=== PATIENT | male | born 1975 | race Caucasian/White ===

== ENCOUNTER 2018-01-28 11:52 | Observation (INO) | payer BC ==
--- NOTE | 2018-01-28 12:08 | ERPHSYRPT ---
- History of Present Illness Time Seen by Provider: 01/28/18 12:00 Historian: patient Exam Limitations: no limitations Physician History: 42 y/o male comes to the ER with complaints of left sided chest pain that started 2 hours ago. Pt described the pain as sharp, lasting for several seconds , as high as 6/10 and his gave him 4 baby ASA. Pt denies any shortness of breath, dizziness or palpitations. Pt has a strong family history of coronary disease with his father having 4 MIs in his 40's and an uncle with PA in his 40' s. Pt does smoke occasionally. Of note, patient admits to not feeling well for the last few days and having nausea. Timing/Duration: today Activities at Onset: none Quality: sharpness Location: substernal, central Chest Pain Radiation: no radiation Severity of Pain-Max: moderate Severity of Pain-Current: none Modifying Factors: Improves With: nothing Associated Symptoms: nausea Prior Chest Pain/Cardiac Workup: no prior chest pain Nitro Today/Relief: no nitro taken today Aspirin Treatment Today: 81 mg x 1 Allergies/Adverse Reactions: Penicillins Allergy (Intermediate, Verified 01/28/18 12:06) reaction when a child Home Medications: No Reportable Medications [No Reported Medications] 01/28/18 [History] - Review of Systems Constitutional: Weakness, No Fever, No Chills Eyes: No Symptoms Ears, Nose, & Throat: No Symptoms Respiratory: No Cough, No Dyspnea Cardiac: Chest Pain, No Edema, No Palpitations, No Syncope, No Orthopnea Abdominal/Gastrointestinal: Nausea, No Abdominal Pain, No Vomiting, No Diarrhea Genitourinary Symptoms: No Dysuria Musculoskeletal: No Back Pain, No Neck Pain Skin: No Rash Neurological: No Dizziness, No Focal Weakness, No Sensory Changes Psychological: No Symptoms Endocrine: No Symptoms All Other Systems: Reviewed and Negative - Nursing Vital Signs Nursing Vital Signs: Initial Vital Signs Temperature 98.8 F 01/28/18 11:54 Pulse Rate 70 01/28/18 11:54 Respiratory Rate 16 01/28/18 11:54 Blood Pressure 161/98 01/28/18 11:54 O2 Sat by Pulse Oximetry 98 01/28/18 11:54 Pain Scale Pain Intensity 0 - Physical Exam General Appearance: no apparent distress, alert Eye Exam: PERRL/EOMI, eyes nml inspection Ears, Nose, Throat Exam: normal ENT inspection, moist mucous membranes Neck Exam: normal inspection, non-tender, supple, full range of motion Respiratory Exam: normal breath sounds, lungs clear, No chest tenderness, No respiratory distress Cardiovascular Exam: regular rate/rhythm, normal heart sounds, normal peripheral pulses Gastrointestinal/Abdomen Exam: soft, normal bowel sounds, No tenderness, No mass Back Exam: normal inspection, No CVA tenderness, No vertebral tenderness Extremity Exam: normal inspection, normal range of motion Neurologic Exam: alert, oriented x 3, cooperative, normal mood/affect, sensation nml, No motor deficits Skin Exam: normal color, warm, dry - Course Nursing assessment & vital signs reviewed: Yes EKG Interpreted by Me: RATE, NORMAL AXIS, NORMAL INTERVALS, NORMAL QRS, NORMAL ST-T Ordered Tests: Active Orders 24 hr Category Date Time Status Bedrest with BRP/BSC ROUTINE Activity 01/28/18 13:[address] STAT Care 01/28/18 12:09 Active Code Status Order ROUTINE Care 01/28/18 13:15 Active EKG-ER Only STAT Care 01/28/18 12:08 Active IV Care Q6H Care 01/28/18 13:15 Active IV Insertion STAT Care 01/28/18 12:08 Active Implement Chest Pain Pathway ROUTINE Care 01/28/18 13:[address] in Observation ROUTINE Care 01/28/18 13:15 Active Mauricio Jones, Apply ROUTINE Care 01/28/18 13:15 Active Telemetry ROUTINE Care 01/28/18 13:15 Active Weight,Daily 0600 Care 01/28/18 13:15 Active Cardiac Diet Diet 01/28/18 Dinner Active CHEST 2 VIEWS (PA AND LAT) Stat Exams 01/28/18 12:09 Taken CBC W DIFF Stat Lab 01/28/18 12:13 Completed CK-Creatinine Phosphokinase Stat Lab 01/28/18 12:13 Completed CMP Stat Lab 01/28/18 12:13 Completed D-DIMER QUANTITATION Stat Lab 01/28/18 12:13 Completed LIPID PROFILE AM.LAB Lab 01/29/18 04:00 Ordered PROTIME WITH INR Stat Lab 01/28/18 12:13 Completed PTT Stat Lab 01/28/18 12:13 Completed TROPONIN Q3H Lab 01/28/18 12:13 Completed TROPONIN Q3H Lab 01/28/18 15:15 Ordered TROPONIN Q3H Lab 01/28/18 18:15 Ordered TROPONIN Q3H Lab 01/28/18 21:15 Ordered TROPONIN Q3H Lab 01/29/18 00:15 Ordered EKG Q8HX2,QAMX3,PRN RT 01/28/18 13:15 Active Pulse Oximetry Q4H RT 01/28/18 13:15 Active Transfer Order Routine Transfer 01/28/18 Ordered Medication Summary Generic Name Dose Route Start Last Admin Trade Name Freq PRN Reason Stop Dose Admin Acetaminophen 650 mg 01/28/18 13:15 Tylenol 325 Mg PO 02/27/18 13:14 Q4H PRN PRN PAIN AND/OR FEVER Al Hydrox/Mg Hydrox/Simethicone 30 ml 01/28/18 13:15 Maalox Es 30 Ml Unit Dose PO 02/27/18 13:14 Q4H PRN PRN INDIGESTION Aspirin 325 mg 01/29/18 10:00 Ecotrin 325 Mg PO 02/28/18 09:59 DAILY [place] Magnesium Hydroxide 30 - 60 ml 01/28/18 13:15 Milk Of Magnesia 30 Ml PO 02/27/18 13:14 QDP PRN CONSTIPATION Ondansetron HCl 4 mg 01/28/18 13:15 Zofran 4 Mg/2 Ml Vial IV 02/27/18 13:14 Q4H PRN PRN NAUSEA/VOMITING Senna/Docusate Sodium 2 udtab 01/28/18 13:15 Senokot-S Tablet PO 02/27/18 13:14 BID PRN PRN CONSTIPATION Lab/Rad Data: Laboratory Result Diagrams 01/28/18 12:13 01/28/18 12:13 Laboratory Results 01/28/18 01/28/18 01/28/18 Range/Units 12:13 12:13 12:13 WBC (4.0-10.5) K/mm3 RBC (4.1-5.6) M/mm3 Hgb (12.5-18.0) gm/dl Hct (42-50) % MCV (78-100) fl MCH (26-32) pg MCHC (32-36) g/dl RDW (11.5-14.0) % Plt Count (150-450) K/mm3 MPV (6-9.5) fl Gran % (36.0-66.0) % Eos # (Auto) (0-0.5) Absolute Lymphs (auto) (1.0-4.6) Absolute Monos (auto) (0.0-1.3) Lymphocytes % (24.0-44.0) % Monocytes % (0.0-12.0) % Eosinophils % (0.00-5.0) % Basophils % (0.0-0.4) % Absolute Granulocytes (1.4-6.9) Basophils # (0-0.4) PT 12.2 (8.83-12.87) SECONDS INR 1.05 (0.8-3.0) APTT 37.5 H (24.1-36.1) SECONDS D-Dimer < 215 L (215-500) ng/mL Sodium 145 (137-145) mmol/L Potassium 3.9 (3.5-5.1) mmol/L Chloride 106 (98-107) mmol/L Carbon Dioxide 26 (22-30) mmol/L Anion Gap 16.7 H (5-15) MEQ/L BUN 12 (9-20) mg/dL Creatinine 0.75 (0.66-1.25) mg/dL Estimated GFR > 60.0 ML/MIN Glucose 113 H (74-106) mg/dL Calcium 9.9 (8.4-10.2) mg/dL Total Bilirubin 1.40 H (0.2-1.3) mg/dL AST 19 (17-59) U/L ALT 21 (0-50) U/L Alkaline Phosphatase 65 (38-126) U/L Creatine Kinase 60 (55-170) U/L Troponin I < 0.012 (0.000-0.034) ng/mL Serum Total Protein 8.1 (6.3-8.2) g/dL Albumin 4.5 (3.5-5.0) g/dL 01/28/18 Range/Units 12:13 WBC 6.7 (4.0-10.5) K/mm3 RBC 5.53 (4.1-5.6) M/mm3 Hgb 16.3 (12.5-18.0) gm/dl Hct 45.4 (42-50) % MCV 82.1 (78-100) fl MCH 29.5 (26-32) pg MCHC 35.9 (32-36) g/dl RDW 13.3 (11.5-14.0) % Plt Count 224 (150-450) K/mm3 MPV 9.6 H (6-9.5) fl Gran % 71.3 H (36.0-66.0) % Eos # (Auto) 0.03 (0-0.5) Absolute Lymphs (auto) 1.31 (1.0-4.6) Absolute Monos (auto) 0.57 (0.0-1.3) Lymphocytes % 19.5 L (24.0-44.0) % Monocytes % 8.5 (0.0-12.0) % Eosinophils % 0.4 (0.00-5.0) % Basophils % 0.3 (0.0-0.4) % Absolute Granulocytes 4.80 (1.4-6.9) Basophils # 0.02 (0-0.4) PT (8.83-12.87) SECONDS INR (0.8-3.0) APTT (24.1-36.1) SECONDS D-Dimer (215-500) ng/mL Sodium (137-145) mmol/L Potassium (3.5-5.1) mmol/L Chloride (98-107) mmol/L Carbon Dioxide (22-30) mmol/L Anion Gap (5-15) MEQ/L BUN (9-20) mg/dL Creatinine (0.66-1.25) mg/dL Estimated GFR ML/MIN Glucose (74-106) mg/dL Calcium (8.4-10.2) mg/dL Total Bilirubin (0.2-1.3) mg/dL AST (17-59) U/L ALT (0-50) U/L Alkaline Phosphatase (38-126) U/L Creatine Kinase (55-170) U/L Troponin I (0.000-0.034) ng/mL Serum Total Protein (6.3-8.2) g/dL Albumin (3.5-5.0) g/dL - Progress Progress: improved Progress Note: 01/28/18 13:10 The patient has an elevated PTT of 37.5 and is not on any heparin products. A repeat PTT needs to be done and possibly a mixing study. The first troponin is within normal limits and the EKG does not show any acute findings. CXR does not show any acute findings. Pt already has received ASA 325mg. Since patient has a strong family history of coronary disease, patient has been admitted to Dr Cagle. 01/28/18 13:12 - Departure Time of Disposition: 13:14 Departure Disposition: Observation Clinical Impression: Chest pain Qualifiers: Chest pain type: unspecified Qualified Code(s): R07.9 - Chest pain, unspecified Condition: Stable Critical Care Time: No Referrals: ROSARIO DÍAZ [Primary Care Provider] -
[2018-01-28 12:15] LABS: BASOPHIL % 0.3 % (0.0-0.4); Basophil (Absolute #) 0.02 (0-0.4); Eosinophil % 0.4 % (0.00-5.0); Eosinophil (Absolute #) 0.03 (0-0.5); Granulocytes % 71.3 % (36.0-66.0); Hematocrit 45.4 % (42-50); Hemoglobin 16.3 gm/dl (12.5-18.0); Lymphocyte (Absolute #) 1.31 (1.0-4.6); Lymphocytes % 19.5 % (24.0-44.0); Mean Cell Volume 82.1 fl (78-100); Mean Corpuscular Hemoglobin 29.5 pg (26-32); Mean Corpuscular Hgb Concent. 35.9 g/dl (32-36); Mean Platelet Volume 9.6 fl (6-9.5); Monocyte (Absolute #) 0.57 (0.0-1.3); Monocytes % 8.5 % (0.0-12.0); Platelet Count 224 K/mm3 (150-450); Red Blood Count 5.53 M/mm3 (4.1-5.6); Red Cell Distribution Width 13.3 % (11.5-14.0); White Blood Count 6.7 K/mm3 (4.0-10.5)
[2018-01-28 12:31] LABS: INR 1.05 (0.8-3.0)
[2018-01-28 12:34] LABS: PTT 37.5 SECONDS (24.1-36.1)
[2018-01-28 12:39] LABS: ALBUMIN 4.5 g/dL (3.5-5.0); ALKALINE PHOSPHATASE 65 U/L (38-126); ANION GAP 16.7 MEQ/L (5-15); BLOOD UREA NITROGEN 12 mg/dL (9-20); CHLORIDE 106 mmol/L (98-107); CK-Creatinine Phosphokinase 60 U/L (55-170); Calcium 9.9 mg/dL (8.4-10.2); Carbon Dioxide 26 mmol/L (22-30); Creatinine 1 0.75 mg/dL (0.66-1.25); Glucose 113 mg/dL (74-106); Potassium 3.9 mmol/L (3.5-5.1); SGOT/AST 19 U/L (17-59); SGPT/ALT 21 U/L (0-50); SODIUM 145 mmol/L (137-145); Total Protein 8.1 g/dL (6.3-8.2)
[2018-01-28 12:42] LABS: D-DIMER QUANTITATION < 215 ng/mL (215-500)
[2018-01-28] MEDS ORDERED: MILK OF MAGNESIA 30 ML PO PRN (13:15)
[2018-01-28] MEDS ORDERED: MAALOX ES 30 ML UNIT DOSE PO PRN (13:15)
[2018-01-28] MEDS ORDERED: Zofran 4 MG/2 ML VIAL IV PRN (13:15)
[2018-01-28] MEDS ORDERED: TYLENOL 325 MG PO PRN (13:15)
[2018-01-28] MEDS ORDERED: Senokot-S Tablet PO PRN (13:15)
--- NOTE | 2018-01-28 20:50 | XRAY ---
Indication: Chest pain. Comparison: None Portablel chest demonstrates normal heart and lungs with incidental right base calcified granuloma. Bony thorax intact.
[2018-01-29 04:49] LABS: Risk Ratio 8.3
--- NOTE | 2018-01-29 08:45 | PCM.HP ---
History of Present Illness - Chief Complaint Chief Complaint: chest pain History of Present Illness: is a 42 year old male who presented with complaints of a 4 day history of upset stomach, low abd pain and diarrhea. Yesterday afternoon he developed acute onset of sharp chest pain 2 hours prior to arrival to ER. His gave him 4 81mg aspirin and the pain resolved in several minutes. there was no shortness of breath, nausea, vomiting nor palpitations associated with the chest pain. He is a smoker with a strong family history of CAD in multiple family members but has no personal history of cardiac disease, has never had any CV testing nor seen a learning center coordinator in the past. - Review of Systems Constitutional: No Fever, No Chills Respiratory: No Cough, No Short Of Breath Cardiac: Chest Pain (resolved since admission), No Edema, No Syncope Abdominal/Gastrointestinal: Abdominal Pain, Nausea, Diarrhea, No Vomiting, No Constipation Genitourinary Symptoms: No Symptoms All Other Systems: Reviewed and Negative Medications & Allergies Home Medications: Home Medication List No Reportable Medications [No Reported Medications] 01/28/18 [History Confirmed 01/28/18] Allergies/Adverse Reactions: Allergies Allergy/AdvReac Type Severity Reaction Status Date / Time Penicillins Allergy Intermediate reaction Verified 01/28/18 12:06 when a child - Past Medical History Past Medical History: No Neurological History: No Pertinent History ENT History: No Pertinent History Cardiac History: No Pertinent History Respiratory History: No Pertinent History Endocrine Medical History: No Pertinent History Musculoskelatal History: No Pertinent History GI Medical History: No Pertinent History History: No Pertinent History Pyscho-Social History: No Pertinent History Male Reproductive Disorders: No Pertinent History - Past Surgical History Past Surgical History: Yes Neuro Surgical History: No Pertinent History Other Surgical History: left shoulder. right leg - Social History Smoking Status: Light tobacco smoker How long have you smoked: years Exposure to second hand smoke: No Alcohol: Occasionally Drug Use: none - Physical Exam Vital Signs: Vital Signs - 24 hr Temp Pulse Pulse Resp BP Pulse Ox 01/29/18 08:00 97 01/29/18 07:21 97.5 F 55 L 18 132/63 97 01/29/18 04:00 97.9 F 66 16 114/60 98 01/29/18 00:03 98.3 F 58 L 16 120/67 99 01/29/18 00:00 99 01/28/18 20:00 98.6 F 64 18 152/84 96 01/28/18 16:19 97.9 F 63 20 144/79 96 01/28/18 16:00 96 01/28/18 13:50 98 F 01/28/18 13:34 98 F 60 20 153/84 96 01/28/18 13:31 98 F 60 20 153/84 96 01/28/18 13:17 97.8 F 55 L 16 134/85 98 01/28/18 11:54 98.8 F 66 70 16 161/98 98 General Appearance: no apparent distress, alert Neurologic Exam: alert, oriented x 3, cooperative, normal mood/affect, nml cerebellar function, nml station & gait, sensation nml, No motor deficits Eye Exam: PERRL/EOMI, eyes nml inspection Respiratory Exam: normal breath sounds, lungs clear, No respiratory distress Cardiovascular Exam: regular rate/rhythm, normal heart sounds, normal peripheral pulses Gastrointestinal/Abdomen Exam: soft, normal bowel sounds, No tenderness, No guarding, No rebound Back Exam: normal inspection, normal range of motion, No CVA tenderness, No vertebral tenderness Extremity Exam: normal inspection, normal range of motion, pelvis stable Skin Exam: normal color, warm, dry, No rash Results - Labs Lab/Micro Results: Lab Results-Last 24 Hours 01/28/18 01/28/18 01/28/18 Range/Units 15:29 18:15 21:30 Troponin I < 0.012 < 0.012 < 0.012 (0.000-0.034) ng/mL Triglycerides (30-150) mg/dL Cholesterol (50-200) mg/dL LDL Cholesterol (30-100) mg/dL HDL Cholesterol (40-60) mg/dL Heart Disease Risk Ratio 01/29/18 01/29/18 Range/Units 00:45 00:45 Troponin I < 0.012 (0.000-0.034) ng/mL Triglycerides 211 H (30-150) mg/dL Cholesterol 273 H (50-200) mg/dL LDL Cholesterol 174 H (30-100) mg/dL HDL Cholesterol 33 L (40-60) mg/dL Heart Disease Risk Ratio 8.3 - Radiology Impressions Radiology Exams & Impressions: Radiology Procedures Category Date Time Status ABDOMEN AND PELVIS W CONTRAST [CT] Urgent Exams 01/29/18 08:38 Ordered - Other Procedures and Tests Respiratory Therapy 01/30/18 05:00 EKG DAILY 01/31/18 05:00 EKG DAILY Assessment/Plan (1) Chest pain Current Visit: Yes Status: Acute Qualifiers: Chest pain type: unspecified Qualified Code(s): R07.9 - Chest pain, unspecified Assessment & Plan: MN has been ruled out, discussed outpatient stress test/cardiology referral on discharge. patient plans to quit smoking after risk factor discussion. LDL 174 so would be a candidate for statin therapy as well for risk reduction Code(s): R07.9 - CHEST PAIN, UNSPECIFIED (2) Abdominal pain Current Visit: Yes Status: Acute Assessment & Plan: will get ct abd/pel, exam benign but symptoms persist and worsen after eating for the last 4 days Code(s): R10.9 - UNSPECIFIED ABDOMINAL PAIN (3) Diarrhea Current Visit: Yes Status: Acute Assessment & Plan: check stool for c diff, ova and parasites and stool culture Code(s): R19.7 - DIARRHEA, UNSPECIFIED
[2018-01-29] MEDS ORDERED: Ecotrin 325 MG PO SCH (10:00)
[2018-01-29 10:36] LABS: 027 TOX PROD PRESUMPTIVE NEGATIVE (NEGATIVE); TOXIGENIC C. DIFF ORG NEGATIVE (NEGATIVE)
[2018-01-29 12:25] VITALS: BP 129/71; PULSE 56; O2SAT 98
--- NOTE | 2018-01-29 17:10 | XRAY ---
Indication: Lower abdominal pain and diarrhea 4 days. Multiple contiguous axial images obtained through the abdomen and pelvis using 80 cc Isovue 370 contrast only. Comparison: None Lung bases demonstrates right base calcified granuloma. No infiltrate or effusion. Heart is not enlarged. Noncontrasted stomach and bowel loops appear nonobstructed. Normal appendix. No free fluid/air. 1 cm left lobe hepatic hemangioma. 1 m right upper pole exophytic renal cyst. Remaining liver, gallbladder, pancreas, spleen, adrenal glands, kidneys, ureters, and bladder appear unremarkable. Minimal aortoiliac calcifications. No AAA or pathological retroperitoneal lymphadenopathy. Osseous structures intact. No ventral or inguinal hernias. Impression: 1. Hepatic hemangioma and right renal cyst. 2. Remaining CT abdomen/pelvis with contrast exam is negative. Comment: Preliminary interpretation was made by C. No discrepancy. CTDI 23.69
[2018-02-01 12:27] LABS: Source: Feces
== END 2018-01-29 14:15 | disposition home or self-care (01) ==
LOC: ED 11:52 → MED SURG 13:25
PROVIDERS: ADMIT Family Medicine; ATTEND Internal Medicine
DX: R07.9 Chest pain, unspecified (principal); R10.9 Unspecified abdominal pain; R19.7 Diarrhea, unspecified
CPT/HCPCS: 36000; 36415; 71046; 74177; 80053; 80061; 82550; 83721; 84484; 85025; 85379; 85610; 85730; 87045; 87046; 87177; 87209; 87335; 87493; 93005; 93041; 93268; 99285; J2405; A9270-GY; G0378

== ENCOUNTER 2018-03-29 05:55 | Day surgery (SDC) | payer BC ==
[2018-03-29] MEDS ORDERED: DIPRIVAN 200 MG/20 ML IV ONE (05:56)
[2018-03-29 06:17] VITALS: O2SAT 97
[2018-03-29] MEDS ORDERED: Lactated Ringers 1,000 ML IV SCH (06:30)
[2018-03-29 08:14] VITALS: BP 118/64; PULSE 60
--- NOTE | 2018-03-29 08:51 | OP ---
SURGERY DATE/TIME: 03/29/2018 0700 PREOPERATIVE DIAGNOSIS: Epigastric abdominal pain. POSTOPERATIVE DIAGNOSIS: Moderate gastritis with superficial ulceration. PROCEDURE: EGD. SURGEON: Fernando Cagle M.D. ANESTHESIA: MAC by Brayan Honeycutt CRNA. ESTIMATED BLOOD LOSS: Minimal. SPECIMENS: There are two cold forceps biopsies taken from the gastric antrum. DESCRIPTION OF PROCEDURE: After informed written consent was obtained, the patient was taken to the endoscopy suite. He underwent monitored anesthesia and a bite block was inserted. The endoscope was inserted into the posterior oropharynx and under direct visualization the esophagus was traversed. No obvious mucosal abnormalities are present in the esophagus. The gastroesophageal junction likewise appeared normal. Upon entering the gastric cavity there was normal rugated gastric mucosa. In the area of the pylorus there moderate to severe gastritis-type changes with some superficial ulceration in the antrum near the pylorus. The pylorus was traversed and the first and second portions of the duodenum showed no obvious lesions. Two cold forceps biopsies were taken from the gastric antrum and sent for Helicobacter pylori testing. The remainder of the exam was unremarkable upon withdrawal of the scope. The scope was removed and the patient was transferred to the recovery room in excellent condition. I have advised avoidance of all NSAID's and started him on Protonix 40 mg daily. Follow up in one week for pathology results.
== END 2018-03-29 08:06 | disposition home or self-care (01) ==
LOC: SDC 05:55
PROVIDERS: ATTEND Family Medicine
DX: K29.70 Gastritis, unspecified, without bleeding (principal); K25.9 Gastric ulcer, unspecified as acute or chronic, without hemorrhage or perforation
CPT/HCPCS: 88305; 94250; J2704

== ENCOUNTER 2021-03-25 04:24 | Observation (INO) | payer BC ==
[2021-03-25] MEDS ORDERED: TORAdol 30 mg Injection IV ONE (04:56)
[2021-03-25] MEDS ORDERED: DECADRON 10MG INJ. IV ONE (04:56)
[2021-03-25] MEDS ORDERED: TORAdol 30 mg Injection ONE (04:57)
[2021-03-25] MEDS ORDERED: DECADRON 10MG INJ. ONE (04:57)
--- NOTE | 2021-03-25 05:07 | ERPHSYRPT ---
- History of Present Illness Time Seen by Provider: 03/25/21 04:40 Source: patient Exam Limitations: no limitations Patient Subjective Stated Complaint: Pt states, "I've had back pain x6 days and I can't do this anymore". Triage Nursing Assessment: pt c/o rt lower back pain which radiates down his rt leg. 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 Pt rates pain a 10 out of 10. Pt went to [facility] on Tuesday and went to the chiropractor on Tuesday and Tuesday and is not getting any relief. Physician History: Patient is a 45-year-old male presents to our ED with complaints of of low back pain. Back pain started approximately 6 days ago while he was at work. Patient works pouring concrete. Patient went to [facility] on Tuesday. Patient states they thought he may have had a kidney stone. Patient had a CT abdomen pelvis. CAT scan did not reveal any obvious back pathology. Patient was giving [place] pain medication. Patient followed up with his chiropractor on Tuesday. Patient states the pain did not improve at this timeframe. Patient's chiropractor advised him to follow-up in the ER. Patient is here this morning because he could not sleep. Pain described as an ache at his low back that radiates down his right leg. Pain worse with long sitting. Pain improves when he hangs his leg over the edge of the bed. No associated fever. No change in bowel bladder function. No saddle anesthesia. No recent back procedures. No associated chest pain or shortness of breath. Patient rates his pain 10 out of 10. Patient voices no other complaints or concerns at this time. Timing/Duration: day(s) (6 days ago) Method of Injury: other (Patient went to work last Tuesday and felt well. Patient works pouring concrete. He felt well that day. The following day on is when he experienced the pain at his back.) Quality: aching Back Pain Location: lumbar spine, paraspinous muscles (Pain spans across the low back.) Back Pain Radiation: lower legs (Radiates down his right lower extremity.) Severity of Pain-Max: moderate Severity of Pain-Current: mild Modifying Factors: Improves With: movement (Weightbearing also worsens symptoms.) Associated Symptoms: denies symptoms, No fever, No chills, No urinary incontinence, No loss of bowel control, No nausea, No vomiting, No light- headedness, No numbness in legs/feet, No tingling in legs/feet Previous symptoms: no prior history Allergies/Adverse Reactions: Penicillins Allergy (Intermediate, Verified 03/25/21 04:49) reaction when a child Home Medications: Cyclobenzaprine HCl 10 mg [Cyclobenzaprine 10 MG] 10 mg PO TID PRN PRN 03/25/21 [History] Hx Tetanus, Diphtheria Vaccination/Date Given: Yes Hx Influenza Vaccination/Date Given: No Hx Pneumococcal Vaccination/Date Given: No Immunizations Up to Date: Yes Travel Risk - International Travel Have you traveled outside of the country in past 3 weeks: No - Coronavirus Screening Are you exhibiting any of the following symptoms?: No Close contact with a COVID-19 positive Pt in past 14-21 Days: No - Vaccine Status Have you recieved a Covid-19 vaccination: No - Review of Systems Constitutional: No Symptoms, No Fever, No Chills Eyes: No Symptoms Ears, Nose, & Throat: No Symptoms Respiratory: No Symptoms, No Cough, No Dyspnea Cardiac: No Symptoms, No Chest Pain, No Edema, No Syncope Abdominal/Gastrointestinal: No Symptoms, No Abdominal Pain, No Nausea, No Vomiting, No Diarrhea Genitourinary Symptoms: No Symptoms, No Dysuria Musculoskeletal: No Symptoms, No Back Pain, No Neck Pain Skin: No Symptoms, No Rash Neurological: No Symptoms, No Dizziness, No Focal Weakness, No Sensory Changes Psychological: No Symptoms Endocrine: No Symptoms Hematologic/Lymphatic: No Symptoms Immunological/Allergic: No Symptoms All Other Systems: Reviewed and Negative - Past Medical History Pertinent Past Medical History: Yes Neurological History: No Pertinent History ENT History: No Pertinent History Cardiac History: No Pertinent History Respiratory History: No Pertinent History Endocrine Medical History: No Pertinent History Musculoskeletal History: No Pertinent History GI Medical History: No Pertinent History History: No Pertinent History Psycho-Social History: No Pertinent History Male Reproductive Disorders: No Pertinent History - Past Surgical History Past Surgical History: Yes Neuro Surgical History: No Pertinent History Cardiac: No Pertinent History Respiratory: No Pertinent History Gastrointestinal: No Pertinent History Genitourinary: No Pertinent History Musculoskeletal: Orthopedic Surgery, Other Male Surgical History: No Pertinent History Other Surgical History: surgery rt leg. lt rotator cuff - Social History Smoking Status: Never smoker How long have you smoked: years Exposure to second hand smoke: No Drug Use: none Patient Lives Alone: No - Nursing Vital Signs Nursing Vital Signs: Initial Vital Signs Temperature 98.9 F 03/25/21 04:32 Pulse Rate 74 03/25/21 04:32 Respiratory Rate 22 03/25/21 04:32 Blood Pressure 130/71 03/25/21 04:32 O2 Sat by Pulse Oximetry 97 03/25/21 04:32 Pain Scale Pain Intensity [Right Lower 10 Posterior Back] Pain Intensity 3 - Physical Exam General Appearance: no apparent distress, alert Eye Exam: PERRL/EOMI, eyes nml inspection Neck Exam: normal inspection, non-tender, supple, full range of motion, No meningismus, No midline tenderness Respiratory Exam: normal breath sounds, lungs clear, No respiratory distress Cardiovascular Exam: regular rate/rhythm, normal heart sounds Gastrointestinal Exam: soft, No tenderness, No mass, No guarding, No pulsatile mass Back Exam: other (Tenderness to palpation across low back. No point tenderness. Overlying soft tissue intact. No signs of trauma.) Extremity Exam: normal inspection, normal range of motion, other (Positive SLR right lower extremity. PT DP pulses are palpable and bilaterally equal. Cap refill less than 2 seconds. 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, normal mood/affect, sensation nml, other (Ambulation worsens pain.), No motor deficits Skin Exam: normal color, warm, dry, No rash Lymphatic Exam: No adenopathy SpO2 Interpretation: normal SpO2: 97 O2 Delivery: Room Air - Course Nursing assessment & vital signs reviewed: Yes Ordered Tests: Active Orders 24 hr Category Date Time Status LUMBAR SPINE W/O [CT] Stat Exams 03/25/21 05:25 Taken CBC W DIFF Stat Lab 03/25/21 05:18 Completed CMP Stat Lab 03/25/21 05:18 Completed CULTURE,URINE Stat Lab 03/25/21 05:57 Received Manual Differential NC Stat Lab 03/25/21 05:18 Completed UA W/RFX UR CULTURE Stat Lab 03/25/21 05:57 Completed Medication Summary Generic Name Dose Route Start Last Admin Trade Name Moraima PRN Reason Stop Dose Admin Ceftriaxone Sodium/Dextrose 1 g in 50 mls @ 100 mls/hr 03/25/21 07:00 Rocephin 1 Gm-D5w 50 Ml Bag IV 03/25/21 07:29 STAT STA Discontinued Medications Generic Name Dose Route Start Last Admin Trade Name Moraima PRN Reason Stop Dose Admin Dexamethasone Sodium Phosphate 10 mg 03/25/21 04:56 03/25/21 05:00 Decadron 10mg Inj. IV 03/25/21 04:57 10 mg STAT ONE Administration Dexamethasone Sodium Phosphate Confirm 03/25/21 04:57 Decadron 10mg Inj. Administered 03/25/21 04:58 Dose 10 mg .ROUTE .STK-MED ONE Ketorolac Tromethamine 30 mg 03/25/21 04:56 03/25/21 05:00 Toradol 30 Mg Injection IV 03/25/21 04:57 30 mg STAT ONE Administration Ketorolac Tromethamine Confirm 03/25/21 04:57 Toradol 30 Mg Injection Administered 03/25/21 04:58 Dose 30 mg .ROUTE .STK-MED ONE Lab/Rad Data: Laboratory Result Diagrams 03/25/21 05:18 03/25/21 05:18 Laboratory Results 03/25/21 03/25/21 03/25/21 Range/Units 05:57 05:18 05:18 WBC 8.0 (4.0-10.5) K/mm3 RBC 4.54 (4.1-5.6) M/mm3 Hgb 13.0 (12.5-18.0) gm/dl Hct 38.4 L (42-50) % MCV 84.6 (78-100) fl MCH 28.6 (26-32) pg MCHC 33.9 (32-36) g/dl RDW 12.6 (11.5-14.0) % Plt Count 165 (150-450) K/mm3 MPV 9.4 (7.5-11.0) fl Sodium 136 L (137-145) mmol/L Potassium 3.5 (3.5-5.1) mmol/L Chloride 97 L (98-107) mmol/L Carbon Dioxide 30 (22-30) mmol/L Anion Gap 12.2 (5-15) MEQ/L BUN 20 (9-20) mg/dL Creatinine 0.89 (0.66-1.25) mg/dL Estimated GFR > 60.0 ML/MIN Glucose 117 H (74-106) mg/dL Calcium 9.2 (8.4-10.2) mg/dL Total Bilirubin 1.10 (0.2-1.3) mg/dL AST 62 H (17-59) U/L ALT 127 H (0-50) U/L Alkaline Phosphatase 105 (38-126) U/L Serum Total Protein 7.2 (6.3-8.2) g/dL Albumin 3.9 (3.5-5.0) g/dL Urine Color MARILYN (YELLOW) Urine Appearance SLIGHTLY CLOUDY (CLEAR) Urine pH 6.0 (5-6) Ur Specific [place] 1.021 (1.005-1.025) Urine Protein NEGATIVE (Negative) Urine Ketones NEGATIVE (NEGATIVE) Urine Blood MODERATE (0-5) Thang/ul Urine Nitrite POSITIVE (NEGATIVE) Urine Bilirubin NEGATIVE (NEGATIVE) Urine Urobilinogen 4 (0-1) mg/dL Ur Leukocyte Esterase TRACE (NEGATIVE) Urine WBC (Auto) 26-50 (0-5) /HPF Urine RBC (Auto) 0-2 (0-2) /HPF U Hyaline Cast (Auto) 0-2 (0-2) /LPF U Epithel Cells (Auto) RARE (FEW) /HPF Urine Bacteria (Auto) RARE (NEGATIVE) /HPF Urine Mucus (Auto) SLIGHT (NEGATIVE) /HPF Urine Culture Reflexed YES (NO) Urine Glucose NEGATIVE (NEGATIVE) mg/dL - Progress Progress: improved Progress Note: Patient endorsed to Dr. Caruso at approximately 7am. UA reveals a urinary tract infection. Ceftriaxone ordered. Mild elevation of AST and ALT. Patient has no abdominal symptomology. CT lumbar spine pending. Patient reassessed. Pain significantly improved. Patient now resting comfortably. Dr. Caruso will make final disposition. 03/25/21 07:08 - Departure Clinical Impression: Urinary tract infection Condition: Stable Critical Care Time: No Referrals: UZIEL MENESES MD [Primary Care Provider] - Instructions: Sciatica (DC), Low Back Pain (DC)
[2021-03-25 05:21] LABS: Hematocrit 38.4 % (42-50); Mean Cell Volume 84.6 fl (78-100); Mean Corpuscular Hemoglobin 28.6 pg (26-32); Mean Corpuscular Hgb Concent. 33.9 g/dl (32-36); Mean Platelet Volume 9.4 fl (7.5-11.0); Platelet Count 165 K/mm3 (150-450); Red Blood Count 4.54 M/mm3 (4.1-5.6); Red Cell Distribution Width 12.6 % (11.5-14.0)
[2021-03-25 05:38] LABS: ALBUMIN 3.9 g/dL (3.5-5.0); ALKALINE PHOSPHATASE 105 U/L (38-126); ANION GAP 12.2 MEQ/L (5-15); BLOOD UREA NITROGEN 20 mg/dL (9-20); CHLORIDE 97 mmol/L (98-107); Calcium 9.2 mg/dL (8.4-10.2); Carbon Dioxide 30 mmol/L (22-30); Creatinine 1 0.89 mg/dL (0.66-1.25); EST GLOMERULAR FILTRATION RATE > 60.0 ML/MIN; Glucose 117 mg/dL (74-106); Potassium 3.5 mmol/L (3.5-5.1); SGOT/AST 62 U/L (17-59); SGPT/ALT 127 U/L (0-50); SODIUM 136 mmol/L (137-145); Total Protein 7.2 g/dL (6.3-8.2)
[2021-03-25 06:49] LABS: Appearance SLIGHTLY CLOUDY (CLEAR); Bacteria RARE /HPF (NEGATIVE); Bilirubin NEGATIVE (NEGATIVE); Blood MODERATE Ery/ul (0-5); Glucose NEGATIVE (NEGATIVE); Hyaline Casts 0-2 /LPF (0-2); Ketones NEGATIVE (NEGATIVE); Leukocyte Esterase TRACE (NEGATIVE); Mucus SLIGHT /HPF (NEGATIVE); Nitrite POSITIVE (NEGATIVE); Protein,Urine Dip NEGATIVE (Negative); RBC 0-2 /HPF (0-2); Specific Gravity 1.021 (1.005-1.025); Urobilinogen 4 mg/dL (0-1); WBC 26-50 /HPF (0-5)
[2021-03-25 06:50] LABS: Epithelial Cells RARE /HPF (FEW)
[2021-03-25] MEDS ORDERED: ROCEPHIN 1 Gm-D5w 50 ml Bag** 1 G/50 ML IVPB IV STA (07:00)
[2021-03-25] MEDS ORDERED: ROCEPHIN 1 Gm-D5w 50 ml Bag** 1 G/50 ML IVPB IV ONE (07:11)
[2021-03-25] MEDS ORDERED: Sodium Chloride 0.9% 1000 ML 1,000 ML IV STA (08:41)
[2021-03-25] MEDS ORDERED: Sodium Chloride 0.9% 1000 ML 1,000 ML ONE (08:52)
[2021-03-25] MEDS ORDERED: TYLENOL 325 MG PO PRN (10:44)
[2021-03-25] MEDS ORDERED: Hydromorphone 1 mg/ml Injection IV PRN (10:44)
[2021-03-25] MEDS ORDERED: Zofran 4 MG/2 ML VIAL IV PRN (10:44)
[2021-03-25] MEDS: Sodium Chloride 0.9% 1000 ML 1,000 ML IV SCH ×2 (11:40→19:46)
[2021-03-25 13:21] LABS: Lymphocytes 21 % (24-44); Neutrophils 79 % (36.-66.); Platelet Estimate NORMAL (NORMAL); Total Cells Counted 100
[2021-03-25] MEDS: TORAdol 30 mg Injection IV SCH ×2 (14:16→21:57)
--- NOTE | 2021-03-25 17:04 | PCM.HP ---
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 he has had some burning with urination, the pain in his right lower back became so severe that he couldn't take it any more, he is feeling much better since admission and pain is the least it's been in the last 6 days currently. there has been no fever or vomiting, no hematuria. - Review of Systems Constitutional: No Fever, No Chills Respiratory: No Cough, No Short Of Breath Cardiac: No Chest Pain, No Edema, No Syncope Abdominal/Gastrointestinal: No Abdominal Pain, No Nausea, No Vomiting, No Diarrhea Genitourinary Symptoms: Dysuria Musculoskeletal: Back Pain Skin: No Rash All Other Systems: Reviewed and Negative Medications & Allergies Home Medications: Home Medication List No Reportable Medications [No Reported Medications] 03/25/21 [History Confirmed 03/25/21] Allergies/Adverse Reactions: Allergies Allergy/AdvReac Type Severity Reaction Status Date / Time Penicillins Allergy Intermediate reaction Verified 03/25/21 04:49 when a child - Past Medical History Past Medical History: Yes Neurological History: No Pertinent History ENT History: No Pertinent History Cardiac History: No Pertinent History Respiratory History: No Pertinent History Endocrine Medical History: No Pertinent History Musculoskelatal History: No Pertinent History GI Medical History: No Pertinent History History: No Pertinent History Pyscho-Social History: No Pertinent History Male Reproductive Disorders: No Pertinent History - Past Surgical History Past Surgical History: Yes Neuro Surgical History: No Pertinent History Cardiac History: No Pertinent History Respiratory Surgery: No Pertinent History GI Surgical History: No Pertinent History Genitourinary Surgical Hx: No Pertinent History Musculskeletal Surgical Hx: Orthopedic Surgery, Other Male Surgical History: No Pertinent History Other Surgical History: surgery rt leg. lt rotator cuff - Social History Smoking Status: Former smoker How long have you smoked: years Exposure to second hand smoke: No Alcohol: Occasionally Drug Use: none - Physical Exam Vital Signs: Vital Signs - 24 hr Temp Pulse Resp BP Pulse Ox 03/25/21 16:00 96.6 F 72 132/76 96 03/25/21 12:00 97.2 F 73 20 125/67 95 03/25/21 10:55 97.2 F 73 20 125/67 95 03/25/21 10:08 98.4 F 80 20 123/64 96 03/25/21 09:09 74 18 112/66 95 03/25/21 08:10 98 F 83 18 127/66 96 03/25/21 07:12 97 03/25/21 07:11 77 18 118/78 94 L 03/25/21 06:00 82 20 114/80 94 L 03/25/21 04:32 98.9 F 74 22 130/71 97 General Appearance: no apparent distress, alert Respiratory Exam: normal breath sounds, lungs clear, No respiratory distress Cardiovascular Exam: regular rate/rhythm, normal heart sounds, normal peripheral pulses Gastrointestinal/Abdomen Exam: soft, normal bowel sounds, No tenderness, No mass Results - Labs Lab/Micro Results: Lab Results-Last 24 Hours 03/25/21 03/25/21 03/25/21 Range/Units 05:18 05:18 05:57 WBC 8.0 (4.0-10.5) K/mm3 RBC 4.54 (4.1-5.6) M/mm3 Hgb 13.0 (12.5-18.0) gm/dl Hct 38.4 L (42-50) % MCV 84.6 (78-100) fl MCH 28.6 (26-32) pg MCHC 33.9 (32-36) g/dl RDW 12.6 (11.5-14.0) % Plt Count 165 (150-450) K/mm3 MPV 9.4 (7.5-11.0) fl Segmented Neutrophils 79 H (36.-66.) % Lymphocytes (Manual) 21 L (24-44) % Platelet Estimate NORMAL (NORMAL) RBC Morphology NORMAL Sodium 136 L (137-145) mmol/L Potassium 3.5 (3.5-5.1) mmol/L Chloride 97 L (98-107) mmol/L Carbon Dioxide 30 (22-30) mmol/L Anion Gap 12.2 (5-15) MEQ/L BUN 20 (9-20) mg/dL Creatinine 0.89 (0.66-1.25) mg/dL Estimated GFR > 60.0 ML/MIN Glucose 117 H (74-106) mg/dL Calcium 9.2 (8.4-10.2) mg/dL Total Bilirubin 1.10 (0.2-1.3) mg/dL AST 62 H (17-59) U/L ALT 127 H (0-50) U/L Alkaline Phosphatase 105 (38-126) U/L Serum Total Protein 7.2 (6.3-8.2) g/dL Albumin 3.9 (3.5-5.0) g/dL Urine Color MARILYN (YELLOW) Urine Appearance SLIGHTLY CLOUDY (CLEAR) Urine pH 6.0 (5-6) Ur Specific [place] 1.021 (1.005-1.025) Urine Protein NEGATIVE (Negative) Urine Ketones NEGATIVE (NEGATIVE) Urine Blood MODERATE (0-5) Thang/ul Urine Nitrite POSITIVE (NEGATIVE) Urine Bilirubin NEGATIVE (NEGATIVE) Urine Urobilinogen 4 (0-1) mg/dL Ur Leukocyte Esterase TRACE (NEGATIVE) Urine WBC (Auto) 26-50 (0-5) /HPF Urine RBC (Auto) 0-2 (0-2) /HPF U Hyaline Cast (Auto) 0-2 (0-2) /LPF U Epithel Cells (Auto) RARE (FEW) /HPF Urine Bacteria (Auto) RARE (NEGATIVE) /HPF Urine Mucus (Auto) SLIGHT (NEGATIVE) /HPF Urine Culture Reflexed YES (NO) Urine Glucose NEGATIVE (NEGATIVE) mg/dL SARS-CoV-2 (PCR) (NEGATIVE) 03/25/21 Range/Units 09:20 WBC (4.0-10.5) K/mm3 RBC (4.1-5.6) M/mm3 Hgb (12.5-18.0) gm/dl Hct (42-50) % MCV (78-100) fl MCH (26-32) pg MCHC (32-36) g/dl RDW (11.5-14.0) % Plt Count (150-450) K/mm3 MPV (7.5-11.0) fl Segmented Neutrophils (36.-66.) % Lymphocytes (Manual) (24-44) % Platelet Estimate (NORMAL) RBC Morphology Sodium (137-145) mmol/L Potassium (3.5-5.1) mmol/L Chloride (98-107) mmol/L Carbon Dioxide (22-30) mmol/L Anion Gap (5-15) MEQ/L BUN (9-20) mg/dL Creatinine (0.66-1.25) mg/dL Estimated GFR ML/MIN Glucose (74-106) mg/dL Calcium (8.4-10.2) mg/dL Total Bilirubin (0.2-1.3) mg/dL AST (17-59) U/L ALT (0-50) U/L Alkaline Phosphatase (38-126) U/L Serum Total Protein (6.3-8.2) g/dL Albumin (3.5-5.0) g/dL Urine Color (YELLOW) Urine Appearance (CLEAR) Urine pH (5-6) Ur Specific [place] (1.005-1.025) Urine Protein (Negative) Urine Ketones (NEGATIVE) Urine Blood (0-5) Thang/ul Urine Nitrite (NEGATIVE) Urine Bilirubin (NEGATIVE) Urine Urobilinogen (0-1) mg/dL Ur Leukocyte Esterase (NEGATIVE) Urine WBC (Auto) (0-5) /HPF Urine RBC (Auto) (0-2) /HPF U Hyaline Cast (Auto) (0-2) /LPF U Epithel Cells (Auto) (FEW) /HPF Urine Bacteria (Auto) (NEGATIVE) /HPF Urine Mucus (Auto) (NEGATIVE) /HPF Urine Culture Reflexed (NO) Urine Glucose (NEGATIVE) mg/dL SARS-CoV-2 (PCR) NEGATIVE (NEGATIVE) - Radiology Impressions Radiology Exams & Impressions: Radiology Procedures Category Date Time Status LUMBAR SPINE W/O [CT] Stat Exams 03/25/21 05:25 Taken Assessment/Plan (1) Low back pain Current Visit: Yes Status: Acute Assessment & Plan: likely an element of mechanical low back pain based on history with exacerbation by acute infection. pain is currently well controlled and patient is improved. continue current management Code(s): M54.5 - LOW BACK PAIN (2) Acute pyelonephritis Current Visit: Yes Status: Acute Assessment & Plan: continue rocephin, culture pending Code(s): N10 - ACUTE PYELONEPHRITIS
--- NOTE | 2021-03-25 22:12 | XRAY ---
Exam: CT of the lumbar spine without IV contrast from 03/25/2021. CTDI: 29.54 mGy Comparison: None. Indication: 45-year-old male with lower back pain radiating into right hip area/sciatica. Pain has been present for 7 days. The patient pours concrete for a living. His pain is becoming worse. Technique: Multiple axial images were obtained through the lower thoracolumbar spine from the upper T11 level down through the upper sacrum. The images were obtained using a bone filter. Reconstructed coronal and sagittal images were created and reviewed. Findings: I see no acute lumbar spine fracture, AP subluxation, or spondylolysis. The vertebral body heights are well-maintained. Small anterior vertebral endplate spurs are seen. There is no bone destruction. Minimal vascular calcification is seen within the distal abdominal aorta and proximal common iliac arteries. No abdominal aortic aneurysm is seen. Incidentally, there appears to be a 2.8 mm nonobstructing stone within the upper pole of the right kidney. This is well seen on coronal image #40. Also, there appears to be a slightly smaller 1.7 mm in diameter nonobstructing stone within the lower pole of the right kidney on coronal image #37. No hydronephrosis is seen. Incidentally, there is an 8 mm lucency within the medial aspect of the right iliac bone on coronal image #53. This may represent a small bone cyst. The sacroiliac joints appear grossly unremarkable. The visualized right adrenal gland appears unremarkable. There is either a 1.2 cm nodule at the inferior medial aspect of the left adrenal gland, or alternatively, some asymmetric nodular thickening of the left adrenal gland. Assessment with a bone filter is challenging. All of the discs appear of average height, except for perhaps slight narrowing of the L5-S1 disc height. No significant lower lumbar spine facet joint arthropathy is seen. At T11-T12, the disc and thecal sac appear unremarkable. No focal disc protrusion, central canal stenosis, or neural foraminal stenosis is seen. At T12-L1, the disc and thecal sac appear unremarkable without evidence of focal disc protrusion, central canal stenosis, or neural foraminal stenosis. At L1-L2, the disc and thecal sac appear unremarkable without focal disc protrusion, significant central canal stenosis, or neural foraminal narrowing. At L2L3, the disc and thecal sac appear unremarkable revealing no disc protrusion, central canal stenosis, or neural foraminal stenosis. At L3-L4, there is equivocal evidence of minimal diffuse posterior bulging. This does not compromise the thecal sac. A focal disc protrusion, central canal stenosis, or neural foraminal stenosis is not seen. At L4-L5, there is equivocal evidence of slight diffuse annular bulging of the disc without focal disc protrusion, significant central canal spinal stenosis, or neural foraminal stenosis. At L5-S1, there is minimal diffuse posterior bulging of the disc without a focal disc protrusion, significant central canal stenosis, or neural foraminal impingement. Impression: 1. No acute lumbar spine fracture, AP subluxation, spondylolysis, or significant central canal stenosis is seen. Also, no significant neural foraminal stenosis is seen. 2. I believe there is a minimal diffuse posterior bulging of the L5-S1 disc and equivocal evidence of slight posterior diffuse bulging of the L3-L4 and L4-L5 discs. A focal disc protrusion is not seen. 3. Small anterior vertebral endplate spurs are seen. I do not see significant posterior facet joint arthropathy. 4. 2 nonobstructing right renal calculi. No hydronephrosis is seen. 5. 1.2 cm left adrenal gland nodule at inferior aspect versus nodular thickening. Precise assessment is somewhat difficult with the sharp bone filter. 6. 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
[2021-03-26] MEDS: Sodium Chloride 0.9% 1000 ML 1,000 ML IV SCH ×3 (03:32→21:50)
[2021-03-26 04:59] LABS: Hematocrit 36.3 % (42-50); Hemoglobin 12.1 gm/dl (12.5-18.0); Mean Cell Volume 84.2 fl (78-100); Mean Corpuscular Hemoglobin 28.1 pg (26-32); Mean Corpuscular Hgb Concent. 33.3 g/dl (32-36); Mean Platelet Volume 9.7 fl (7.5-11.0); Platelet Count 211 K/mm3 (150-450); Red Blood Count 4.31 M/mm3 (4.1-5.6); Red Cell Distribution Width 12.4 % (11.5-14.0); White Blood Count 10.1 K/mm3 (4.0-10.5)
[2021-03-26 05:16] LABS: ALBUMIN 3.4 g/dL (3.5-5.0); ALKALINE PHOSPHATASE 89 U/L (38-126); ANION GAP 11.4 MEQ/L (5-15); BLOOD UREA NITROGEN 17 mg/dL (9-20); CHLORIDE 102 mmol/L (98-107); Carbon Dioxide 28 mmol/L (22-30); Creatinine 1 0.69 mg/dL (0.66-1.25); EST GLOMERULAR FILTRATION RATE > 60.0 ML/MIN; Glucose 134 mg/dL (74-106); Potassium 3.8 mmol/L (3.5-5.1); SGOT/AST 37 U/L (17-59); SGPT/ALT 93 U/L (0-50); SODIUM 138 mmol/L (137-145); Total Protein 6.6 g/dL (6.3-8.2)
[2021-03-26] MEDS: TORAdol 30 mg Injection IV SCH ×3 (05:19→21:11)
--- NOTE | 2021-03-26 09:26 | PCM.NOTE ---
Date and Time: 03/26/21923 Subjective Assessment: back pain came on suddenly this morning, returned to right lower back, worse with movement. Objective Exam General Appearance: mild distress Neurologic Exam: alert, oriented x 3 Respiratory Exam: normal breath sounds, lungs clear, No respiratory distress Cardiovascular Exam: regular rate/rhythm, normal heart sounds Gastrointestinal/Abdomen Exam: soft, No tenderness, No mass Back Exam: decreased range of motion, muscle spasm, No CVA tenderness, No vertebral tenderness OBJECTIVE DATA Vital Signs: Vital Signs - 24 hr Temp Pulse Resp BP Pulse Ox 03/26/21 07:46 97.0 F 69 18 152/89 95 03/26/21 04:00 97.6 F 70 16 137/79 99 03/25/21 23:35 98.1 F 72 18 140/83 97 03/25/21 19:57 97.8 F 76 18 131/70 98 03/25/21 16:00 96.6 F 72 132/76 96 03/25/21 12:00 97.2 F 73 20 125/67 95 03/25/21 10:55 97.2 F 73 20 125/67 95 03/25/21 10:08 98.4 F 80 20 123/64 96 Pain Assessment - Last Documented Pain Intensity [Right Lower 10 Posterior Back] Pain Intensity 8 Pain Scale Used 0-10 Pain Scale Intake and Output: Intake & Output 03/23/21 03/24/21 03/25/21 03/26/21 11:59 11:59 11:59 11:59 Intake Total 5978 Balance 5978 Weight 108.862 kg 109.1 kg Lab Results: Lab Results-Last 24 Hours 03/25/21 03/25/21 03/26/21 Range/Units 05:18 09:20 04:33 WBC 10.1 (4.0-10.5) K/mm3 RBC 4.31 (4.1-5.6) M/mm3 Hgb 12.1 L (12.5-18.0) gm/dl Hct 36.3 L (42-50) % MCV 84.2 (78-100) fl MCH 28.1 (26-32) pg MCHC 33.3 (32-36) g/dl RDW 12.4 (11.5-14.0) % Plt Count 211 (150-450) K/mm3 MPV 9.7 (7.5-11.0) fl Segmented Neutrophils 79 H (36.-66.) % Lymphocytes (Manual) 21 L (24-44) % Platelet Estimate NORMAL (NORMAL) RBC Morphology NORMAL Sodium (137-145) mmol/L Potassium (3.5-5.1) mmol/L Chloride (98-107) mmol/L Carbon Dioxide (22-30) mmol/L Anion Gap (5-15) MEQ/L BUN (9-20) mg/dL Creatinine (0.66-1.25) mg/dL Estimated GFR ML/MIN Glucose (74-106) mg/dL Calcium (8.4-10.2) mg/dL Total Bilirubin (0.2-1.3) mg/dL AST (17-59) U/L ALT (0-50) U/L Alkaline Phosphatase (38-126) U/L Serum Total Protein (6.3-8.2) g/dL Albumin (3.5-5.0) g/dL SARS-CoV-2 (PCR) NEGATIVE (NEGATIVE) 03/26/21 Range/Units 04:33 WBC (4.0-10.5) K/mm3 RBC (4.1-5.6) M/mm3 Hgb (12.5-18.0) gm/dl Hct (42-50) % MCV (78-100) fl MCH (26-32) pg MCHC (32-36) g/dl RDW (11.5-14.0) % Plt Count (150-450) K/mm3 MPV (7.5-11.0) fl Segmented Neutrophils (36.-66.) % Lymphocytes (Manual) (24-44) % Platelet Estimate (NORMAL) RBC Morphology Sodium 138 (137-145) mmol/L Potassium 3.8 (3.5-5.1) mmol/L Chloride 102 (98-107) mmol/L Carbon Dioxide 28 (22-30) mmol/L Anion Gap 11.4 (5-15) MEQ/L BUN 17 (9-20) mg/dL Creatinine 0.69 (0.66-1.25) mg/dL Estimated GFR > 60.0 ML/MIN Glucose 134 H (74-106) mg/dL Calcium 9.0 (8.4-10.2) mg/dL Total Bilirubin 0.70 (0.2-1.3) mg/dL AST 37 (17-59) U/L ALT 93 H (0-50) U/L Alkaline Phosphatase 89 (38-126) U/L Serum Total Protein 6.6 (6.3-8.2) g/dL Albumin 3.4 L (3.5-5.0) g/dL SARS-CoV-2 (PCR) (NEGATIVE) Radiology Exams: Radiology Procedures Category Date Time Status LUMBAR SPINE W/O [CT] Stat Exams 03/25/21 05:25 Completed Assessment/Plan (1) Low back pain Current Visit: Yes Status: Acute Assessment & Plan: appears to definitely have a msk component based on history, add norflex 100mg po bid and consult PT Code(s): M54.5 - LOW BACK PAIN (2) Acute pyelonephritis Current Visit: Yes Status: Acute Assessment & Plan: culture pending, on rocephin Code(s): N10 - ACUTE PYELONEPHRITIS
[2021-03-26] MEDS: Norflex 100 MG Tablet PO SCH ×2 (10:06→21:10)
[2021-03-26] MEDS: ROCEPHIN 1 Gm-D5w 50 ml Bag** 1 G/50 ML IVPB IV SCH (10:07)
[2021-03-26] MEDS ORDERED: Hydromorphone 1 mg/ml Injection IV ONE ×2 (11:33→13:19)
[2021-03-26] MEDS ORDERED: Hydromorphone 1 mg/ml Injection IV PRN (11:34)
[2021-03-26] MEDS: solu-MEDROL 80 MG, Sterile H2O 10 ml 2 ML IV SCH ×4 (13:32→21:11)
[2021-03-26 14:59] LABS: BAND 2 % (0.0-2.0); Lymphocytes 12 % (24-44); Monocyte 5 % (0.0-12.0); Neutrophils 81 % (36.-66.); Platelet Estimate NORMAL (NORMAL); Total Cells Counted 100; Toxic Granulation 1+
[2021-03-27 04:55] LABS: Hematocrit 37.4 % (42-50); Hemoglobin 12.5 gm/dl (12.5-18.0); Mean Cell Volume 84.8 fl (78-100); Mean Corpuscular Hemoglobin 28.3 pg (26-32); Mean Corpuscular Hgb Concent. 33.4 g/dl (32-36); Mean Platelet Volume 9.5 fl (7.5-11.0); Platelet Count 288 K/mm3 (150-450); Red Blood Count 4.41 M/mm3 (4.1-5.6); Red Cell Distribution Width 12.6 % (11.5-14.0); White Blood Count 13.8 K/mm3 (4.0-10.5)
[2021-03-27 05:13] LABS: ANION GAP 12.9 MEQ/L (5-15); BLOOD UREA NITROGEN 14 mg/dL (9-20); CHLORIDE 100 mmol/L (98-107); Calcium 9.1 mg/dL (8.4-10.2); Carbon Dioxide 28 mmol/L (22-30); Creatinine 1 0.66 mg/dL (0.66-1.25); EST GLOMERULAR FILTRATION RATE > 60.0 ML/MIN; Glucose 165 mg/dL (74-106); Potassium 3.9 mmol/L (3.5-5.1); SODIUM 137 mmol/L (137-145)
[2021-03-27] MEDS: Sodium Chloride 0.9% 1000 ML 1,000 ML IV SCH (05:51)
[2021-03-27] MEDS: solu-MEDROL 80 MG, Sterile H2O 10 ml 2 ML IV SCH ×2 (05:52)
[2021-03-27] MEDS: TORAdol 30 mg Injection IV SCH (05:52)
[2021-03-27 07:17] LABS: BAND 9 % (0.0-2.0); Lymphocytes 12 % (24-44); Metamyelocyte 1 %; Monocyte 2 % (0.0-12.0); Neutrophils 76 % (36.-66.); Platelet Estimate NORMAL (NORMAL); Total Cells Counted 100
[2021-03-27 07:18] LABS: Absolute Neutrophil Ct (ANC) 11.73 (1.4-6.9)
--- NOTE | 2021-03-27 08:39 | PCM.DS ---
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 improved with steroids and abx, culture has returned with staph aureus - Vitals & Intake/Output Vital Signs: Vital Signs Temperature 97.8 F 03/27/21 04:00 Pulse Rate 66 03/27/21 04:00 Respiratory Rate 16 03/27/21 04:00 Blood Pressure 151/83 03/27/21 04:00 O2 Sat by Pulse Oximetry 99 03/27/21 04:00 Intake & Output: Intake & Output 03/24/21 03/25/21 03/26/21 03/27/21 11:59 11:59 11:59 11:59 Intake Total 5978 3638 Balance 5978 3638 Weight 108.862 kg 109.1 kg 109.4 kg - Lab Result Diagrams: 03/27/21 04:37 03/27/21 04:37 Lab Results-Last 24 Hrs: Lab Results-Last 24 Hours 03/26/21 03/27/21 03/27/21 Range/Units 04:33 04:37 04:37 WBC 13.8 H (4.0-10.5) K/mm3 RBC 4.41 (4.1-5.6) M/mm3 Hgb 12.5 (12.5-18.0) gm/dl Hct 37.4 L (42-50) % MCV 84.8 (78-100) fl MCH 28.3 (26-32) pg MCHC 33.4 (32-36) g/dl RDW 12.6 (11.5-14.0) % Plt Count 288 D (150-450) K/mm3 MPV 9.5 (7.5-11.0) fl Absolute Granulocytes 11.73 H (1.4-6.9) Segmented Neutrophils 81 H 76 H (36.-66.) % Band Neutrophils 2 9 H (0.0-2.0) % Lymphocytes (Manual) 12 L 12 L (24-44) % Monocytes (Manual) 5 2 (0.0-12.0) % Metamyelocytes 1 % Toxic Granulation 1+ Platelet Estimate NORMAL NORMAL (NORMAL) RBC Morphology NORMAL NORMAL Sodium 137 (137-145) mmol/L Potassium 3.9 (3.5-5.1) mmol/L Chloride 100 (98-107) mmol/L Carbon Dioxide 28 (22-30) mmol/L Anion Gap 12.9 (5-15) MEQ/L BUN 14 (9-20) mg/dL Creatinine 0.66 (0.66-1.25) mg/dL Estimated GFR > 60.0 ML/MIN Glucose 165 H (74-106) mg/dL Calcium 9.1 (8.4-10.2) mg/dL Micro Results-Entire Visit: Microbiology 03/25/21 05:57 Urine Culture - Final Clean Catch Midstream Staphylococcus Aureus - Procedures and Test Procedures and Tests throughout Hospitalization: Therapy Orders & Screens 03/26/21 09:23 PT Eval & Treat ( Order) ONCE Reason for Eval:: right low back pain, muscle strain Diagnosis: Pyelonephritis Discharge Exam General Appearance: no apparent distress, alert Neurologic Exam: alert, oriented x 3 Respiratory Exam: normal breath sounds, lungs clear, No respiratory distress Cardiovascular Exam: regular rate/rhythm, normal heart sounds Gastrointestinal/Abdomen Exam: soft, No tenderness, No mass Back Exam: normal inspection Skin Exam: normal color, warm, dry Final Diagnosis/Problem List - Final Discharge Diagnosis/Problem (1) Low back pain Current Visit: Yes Status: Acute Assessment & Plan: prednisone and norco, f/u 1 week Code(s): M54.5 - LOW BACK PAIN (2) Acute pyelonephritis Current Visit: Yes Status: Acute Assessment & Plan: staph on culture, home on bactrim Code(s): N10 - ACUTE PYELONEPHRITIS - Discharge Disposition: Home, Self-Care Condition: Stable Prescriptions: New Smz/Tmp Ds Tablet [Bactrim Ds Tablet] 1 tab PO BID #14 tablet Prednisone 20 mg [Deltasone 20 mg] 20 mg PO UD #18 tablet Hydrocodone/Acetaminophen [Hydrocodone-Acetamin 10-325 mg] 1 tablet PO Q6H PRN PRN #28 tablet MDD 4 PRN Reason: Pain Follow up with: UZIEL MENESES MD [Primary Care Provider] - 1 Week
[2021-03-27 09:37] VITALS: BP 156/89; PULSE 67; O2SAT 96
[2021-03-27] MEDS: ROCEPHIN 1 Gm-D5w 50 ml Bag** 1 G/50 ML IVPB IV SCH (09:48)
[2021-03-27] MEDS: Norflex 100 MG Tablet PO SCH (09:49)
== END 2021-03-27 11:00 | disposition home or self-care (01) ==
LOC: ED 04:24 → MED SURG 10:38
PROVIDERS: ADMIT Family Medicine; ATTEND Family Medicine
DX: M54.5 Low back pain (principal); N10 Acute pyelonephritis; M62.830 Muscle spasm of back; Z79.899 Other long term (current) drug therapy; Z20.828 Contact with and (suspected) exposure to other viral communicable diseases
CPT/HCPCS: 36000; 36415; 72131; 80048; 80053; 81001; 85025; 87077; 87086; 87186; 96360; 96365; 96374; 96375; 97014; 97161; 99285; U0003; G0378; J0696; J1100; J1170; J1885; J2930; A9270-GY; G0283-GP

== ENCOUNTER 2024-06-14 06:00 | Day surgery (SDC) | payer BC ==
[2024-06-14] MEDS ORDERED: Lactated Ringers 1,000 ML IV SCH (07:00)
[2024-06-14 07:39] LABS: ANION GAP 16.8 MEQ/L (5-15); Calcium 9.8 mg/dL (8.4-10.2); Creatinine 1 0.85 mg/dL (0.66-1.25); EST GLOMERULAR FILTRATION RATE 106.5 ML/MIN; Potassium 3.7 mmol/L (3.5-5.1)
[2024-06-14] MEDS ORDERED: DIPRIVAN 200 MG/20 ML IV ONE (08:14)
[2024-06-14 08:53] VITALS: RESP 18
[2024-06-14 09:03] VITALS: BP 121/83; PULSE 65; TEMP 97.9; O2SAT 98
--- NOTE | 2024-06-15 08:29 | OP ---
SURGERY DATE/TIME: 06/14/2024 PREOPERATIVE DIAGNOSIS: Screening colonoscopy. POSTOPERATIVE DIAGNOSIS: Normal colon. PROCEDURE: Colonoscopy. SURGEON: Fernando Cagle MD ANESTHESIA: MAC by Sanju Keyes CRNA. ESTIMATED BLOOD LOSS: None. SPECIMENS: None. DESCRIPTION OF PROCEDURE AND FINDINGS: After informed written consent was obtained, the patient was taken to the endoscopy suite. He was placed in the left lateral decubitus position, then anesthesia was titrated to the desired level of consciousness. Digital rectal exam showed normal sphincter tone and no internal lesions. The scope was inserted and sequentially, the entire colonic mucosa was traversed. The level of the cecum was reached and verified with direct visualization of the ileocecal valve. Upon withdrawal, careful mucosal inspection revealed no mucosal abnormalities, prep was noted to be good. Prior to withdrawal, retroflexion was performed, showed no internal lesions. Scope was removed. Patient was transferred to the recovery room in good condition.
== END 2024-06-14 09:03 | disposition home or self-care (01) ==
LOC: SDC 06:00
PROVIDERS: ATTEND Family Medicine
DX: Z12.11 Encounter for screening for malignant neoplasm of colon (principal); I10 Essential (primary) hypertension
CPT/HCPCS: 36415; 80048; 93005; J2704